=== PATIENT | female | born 1960 | race Caucasian/White ===

== ENCOUNTER → 2017-02-08 | Outpatient (CLI) | payer BC | LOC: FIMAGING 08:11 | PROVIDERS: ATTEND Nurse Practitioner | DX: Z12.31 Encounter for screening mammogram for malignant neoplasm of breast (principal) | CPT/HCPCS: G0202 ==

== ENCOUNTER 2018-12-28 14:15 | Emergency (ER) | payer BC ==
--- NOTE | 2018-12-28 15:21 | EDPHY ---
H & P Time Seen by Provider: 12/28/18 15:14 HPI/ROS: CHIEF COMPLAINT: Chest discomfort and left arm pain HISTORY OF PRESENT ILLNESS: The patient is a 58-year-old female with a history of GERD as well as irritable bowel disease and hypothyroidism who comes to the emergency department complaining of chest discomfort and left arm pain for the last 4 days. She states that on Monday after a dinner of steak and asparagus she felt a bubble in her upper chest. She assumed that it was a return of her GERD which she has had well controlled for the last 10 years. She took Gas-X and Imodium without any significant improvement. She had pain while sleeping that night and woke up several times. She finally found relief by propping herself up on several pillows. The next morning she began noticing some left arm pain as well. It is not worsened by movement or deep breathing. She began taking Nexium daily and her symptoms have somewhat improved but she is concerned because she has never had the all left arm pain before. No nausea vomiting. No shortness of breath. No recent travel. She does not smoke. No history of cardiac or pulmonary disease. She does have a family history of cardiac disease. She denies neck pain or radicular symptoms. She presented to an urgent care on Monday who performed an EKG that was unremarkable. They recommended she come to an ER she continued to have symptoms. Severity: Moderate Modifying factors: Gradually improving with Nexium REVIEW OF SYSTEMS: Constitutional: denies: chills, fever, recent illness, recent injury EENTM: denies: blurred vision, double vision, nose congestion Respiratory: denies: cough, shortness of breath Cardiac: See HPI, denies: irregular heart rate, lightheadedness, palpitations Gastrointestinal/Abdominal: denies: abdominal pain, diarrhea, nausea, vomiting, blood streaked stools Genitourinary: denies: dysuria, frequency, hematuria, pain Musculoskeletal: denies: joint pain, muscle pain Skin: denies: lesions, rash, jaundice, bruising Neurological: denies: headache, numbness, paresthesia, tingling, dizziness, weakness Hematologic/Lymphatic: denies: blood clots, easy bleeding, easy bruising Immunologic/allergic: denies: HIV/AIDS, transplant 10 systems reviewed and negative except as noted EXAM: GENERAL: Well-appearing, well-nourished and in no acute distress. HEAD: Atraumatic, normocephalic. EYES: Pupils equal round and reactive to light, extraocular movements intact, sclera anicteric, conjunctiva are normal. ENT: TMs normal, nares patent, oropharynx clear without exudates. Moist mucous membranes. NECK: Normal range of motion, supple without lymphadenopathy or JVD. LUNGS: Breath sounds clear to auscultation bilaterally and equal. No wheezes rales or rhonchi. HEART: Regular rate and rhythm without murmurs, rubs or gallops. ABDOMEN: Soft, nontender, normoactive bowel sounds. No guarding, no rebound. No masses appreciated. BACK: No CVA tenderness, no spinal tenderness, step-offs or deformities EXTREMITIES: Normal range of motion, no pitting or edema. No clubbing or cyanosis. NEUROLOGICAL: Cranial nerves II through XII grossly intact. Normal speech, normal gait. 5/5 strength, normal movement in all extremities, normal sensation , normal reflexes PSYCH: Normal mood, normal affect. SKIN: Warm, dry, normal turgor, no visible rashes or lesions. Source: Patient Exam Limitations: No limitations - Medical/Surgical History Hx Asthma: No Hx Chronic Respiratory Disease: No Hx Diabetes: No Hx Cardiac Disease: No Hx Renal Disease: No Hx Cirrhosis: No Hx Alcoholism: No Hx HIV/AIDS: No Hx Splenectomy or Spleen Trauma: No Other PMH: IBS, GERD, Thyroid - Family History Significant Family History: Heart disease (dad, uncle) - Social History Alcohol Use: None Constitutional: Initial Vital Signs Temperature (C) 37 C 12/28/18 16:33 Heart Rate 62 12/28/18 16:33 Respiratory Rate 16 12/28/18 16:33 Blood Pressure 105/67 12/28/18 16:33 O2 Sat (%) 95 12/28/18 16:33 O2 Delivery Mode Room Air Allergies/Adverse Reactions: latex Allergy (Verified 12/28/18 15:52) Penicillins Allergy (Verified 12/28/18 15:52) Home Medications: Medication Instructions Recorded Levothyroxine 12/28/18 Medical Decision Making - Diagnostics EKG Interpretation: An EKG obtained and was read and documented in trace view. Please see trace view for full reading and report. Sinus rhythm, no acute ischemic changes Imaging Results: Imaging Impressions Chest X-Ray 12/28/18 15:22 Impression: Mild airways disease. No acute process. Imaging: Discussed imaging studies w/ call center agent Radiologist ED Course/Re-evaluation: The patient's lab work, EKG and chest x-ray are all reassuring. She has had some success of reducing her symptoms with antacids. She will follow up with her gastrologist for further consultation. I will also have the cardiology office follow-up with her. She has had symptoms for several days so a single negative troponin is reassuring. We did discussed indications for returning. Differential Diagnosis: Partial list of the Differential diagnosis considered include but were not limited to; GERD, peptic ulcer disease, anxiety, radiculopathy and although unlikely based on the history and physical exam, I also considered acute coronary disease, arrhythmia, PE, pneumonia, pneumothorax, musculoskeletal strain. I discussed these differential diagnoses and the plan with the patient as well as the usual and expected course. The patient understands that the diagnosis is provisional and that in medicine we are not always correct and that further workup is often warranted. Usual and customary warnings were given. All of the patient's questions were answered. The patient was instructed to return to the emergency department should the symptoms at all worsen or return, otherwise to followup with the physician as we discussed. - Data Points Laboratory Results: 12/28/18 12/28/18 15:44 15:42 POC Sodium 142 mEq/L mEq/L (135-145) POC Potassium 3.6 mEq/L mEq/L (3.3-5.0) POC Chloride 104.0 mEq/L mEq/L (97-110) POC Total CO2 28 mEq/L mEq/L (22-31) POC BUN 17 mg/dL mg/dL (7-23) POC Creatinine 1.1 mg/dL H mg/dL (0.6-1.0) POC Glucose 112 mg/dL H mg/dL (70-100) POC Calcium 9.9 mg/dL mg/dL (8.5-10.4) POC Total Bilirubin 0.9 mg/dL mg/dL (0.1-1.4) POC AST 22 IU/L IU/L (14-46) POC ALT 34 IU/L IU/L (9-52) POC Alk Phosphatase 66 IU/L IU/L (38-126) POC Troponin I 0.00 ng/mL ng/mL (0.00-0.08) POC Total Protein 7.2 g/dL g/dL (6.3-8.2) POC Albumin 3.6 g/dL g/dL (3.5-5.0) Point of Care Test Results: CBC CBC Collection Date 12/28/18 CBC Collection Time 15:30 WBC 6.83 RBC 4.86 HGB 14.6 HCT 42.1 PLT 255 Neut # 5.07 Neut 74.4 LYMPH # 1.26 LYMPH 18.4 MCV 86.6 Chemistry 12/28/18 12/28/18 15:44 15:42 POC Sodium 142 mEq/L mEq/L (135-145) POC Potassium 3.6 mEq/L mEq/L (3.3-5.0) POC Chloride 104.0 mEq/L mEq/L (97-110) POC Total CO2 28 mEq/L mEq/L (22-31) POC BUN 17 mg/dL mg/dL (7-23) POC Creatinine 1.1 mg/dL H mg/dL (0.6-1.0) POC Glucose 112 mg/dL H mg/dL (70-100) POC Calcium 9.9 mg/dL mg/dL (8.5-10.4) POC Total Bilirubin 0.9 mg/dL mg/dL (0.1-1.4) POC AST 22 IU/L IU/L (14-46) POC ALT 34 IU/L IU/L (9-52) POC Alk Phosphatase 66 IU/L IU/L (38-126) POC Troponin I 0.00 ng/mL ng/mL (0.00-0.08) POC Total Protein 7.2 g/dL g/dL (6.3-8.2) POC Albumin 3.6 g/dL g/dL (3.5-5.0) D-Dimer D-Dimer Collection Date 12/28/18 D-Dimer Collection Time 15:30 D-Dimer (ng/ml) <100 Departure - Departure Disposition: Home, Routine, Self-Care Clinical Impression: Chest pain Qualifiers: Chest pain type: unspecified Qualified Code(s): R07.9 - Chest pain, unspecified Condition: Fair Instructions: Chest Pain (ED) Referrals: Roxanna Ruth REMNANT SORTER [Primary Care Provider] - As per Instructions Alex Holly MD [Medical Doctor] - 2-3 days, if not improved
--- NOTE | 2018-12-28 15:34 | CPEKG ---
Test Reason : OPEN Blood Pressure : / mmHG Vent. Rate : 061 BPM Atrial Rate : 062 BPM P-R Int : 150 ms QRS Dur : 101 ms QT Int : 432 ms P-R-T Axes : 066 039 039 degrees QTc Int : 435 ms Sinus rhythm Abnormal R-wave progression, early transition Confirmed by Chilango Bennett ([id number]) on 12/28/2018 3:34:00 PM Referred By: PHYSICIAN ED Confirmed By:Chilango Bennett
[2018-12-28 17:41] VITALS: BP 114/62
== END 2018-12-28 17:41 | disposition home or self-care (01) ==
LOC: CED 14:15
DX: R07.9 Chest pain, unspecified (principal); M79.602 Pain in left arm; K21.9 Gastro-esophageal reflux disease without esophagitis; K58.9 Irritable bowel syndrome, unspecified; Z82.49 Family history of ischemic heart disease and other diseases of the circulatory system; Z88.0 Allergy status to penicillin; Z91.040 Latex allergy status
CPT/HCPCS: 71046-PO; 80053-ER; 84484-ER; 85025-QW-ER; 85379-QW-ER; 99285-ER